=== PATIENT | male | born 1990 | race Caucasian/White ===

== ENCOUNTER 2021-04-27 08:00 | Outpatient (CLI) | payer OTHER | END 2021-04-27 23:59 | LOC: LAB.N 08:00 | PROVIDERS: ATTEND Physician Assistant Medical | DX: U07.1 COVID-19 (principal); N50.811 Right testicular pain; R39.9 Unspecified symptoms and signs involving the genitourinary system | CPT/HCPCS: 87086; 87275; 87276 ==

== ENCOUNTER 2023-10-19 10:51 | Outpatient (CLI) | payer OTHER ==
--- NOTE | 2023-10-19 14:31 | Ultrasound Report ---
PROCEDURE: Renal (Retroperitoneal) INDICATIONS: CKD TECHNIQUE: Real-time scanning was performed of the retroperitoneal organs, with image documentation. COMPARISON: None. FINDINGS: Kidneys: Kidneys are normal in size. Right kidney measures 9.6 cm long; left kidney measures 11.6 c m long. Right renal cortical thickness is 0.8 cm; left renal cortical thickness is 1.0 cm. No solid masses, hydronephrosis, or nephrolithiasis. Bladder: Pre-void bladder volume is 114 mL. Post-void residual is 14 mL. Pre-void images demonstra te no intraluminal masses or stones. On pre-void images, ureteral jets are noted with color Doppler interrogation. (Of note, ureteral jets may not be detectable in up to 25% of cases due to insufficie nt differences in specific gravity between ureteral and bladder urine). Miscellaneous: Increased liver echogenicity, likely hepatic steatosis. IMPRESSION: Normal sonographic appearance of the kidneys. Increased liver echogenicity, commonly mild hepatic steatosis. Reviewed by: Hiram Tripp MD on 10/19/2023 2:29 PM PDT Approved by: Hiram Tripp MD on 10/19/2023 2:29 PM PDT Station ID: [id number]
== END 2023-10-19 10:52 | disposition home or self-care (01) ==
LOC: DI 10:51
PROVIDERS: ATTEND Internal Medicine
DX: N18.2 Chronic kidney disease, stage 2 (mild) (principal)